=== PATIENT | male | born 1970 | race Caucasian/White ===

== ENCOUNTER 2017-01-10 10:25 | Emergency (ER) | payer BC ==
[~2017-01-10] VITALS: Ht 167.6 cm; Wt 59.1 kg
[~2017-01-10 10:25] MED LIST: CELEXA10 MG PO; NO HOME MEDICATIONS; PEPCID 20MG TAB20 MG PO; PERCOCET 325 MG1 TA2 PO; PRILOSEC 20MG20 MG PO
[2017-01-10 10:28] VITALS: TEMP 97.5
[2017-01-10] MEDS ORDERED: CLARITIN 1010 MG/TAB PO (10:35)
[2017-01-10] MEDS ORDERED: CELEXA40 MG PO (10:35)
[2017-01-10 10:53] LABS: BASO # 0.1 (0.0-0.2); EOS # 0.2 (0.0-0.7); EOS % 3.6 % (0-4.0); GRAN # 2.2 (1.4-6.5); GRAN % 42.8 % (42.2-75.2); HEMATOCRIT 40.4 % (42.0-52.0); HEMOGLOBIN 13.9 g/dl (13.5-18.0); LYMPH # 2.2 (1.2-3.4); LYMPH % 44.6 % (20.0-51.0); MEAN CELL VOLUME 87 fl (80.0-100.0); MEAN CORPUSCULAR HEMOGLOBIN 30 pg (27.0-31.0); MEAN CORPUSCULAR HGB CONC 34 g/dl (33.0-37.0); MEAN PLATELET VOLUME 10.9 fl (7.4-10.4); MONO # 0.4 (0.1-0.6); MONO % 7.6 % (1.7-9.3); PLATELET COUNT 194 K/mm3 (130-400); RED BLOOD COUNT 4.64 M/mm3 (4.20-5.60); REDCELL DISTRIBUTION WIDTH-CV 13.1 % (11.5-14.5)
[2017-01-10 11:10] LABS: ALANINE AMINOTRANSFERASE 75 U/L (21-72); ALBUMIN 4.5 gm/dL (3.5-5.0); ALKALINE PHOSPHATASE 83 U/L (50-136); ANION GAP 12 mmol/L (7-16); BILIRUBIN,TOTAL 0.9 mg/dL (0.0-1.0); BLOOD UREA NITROGEN 16 mg/dL (9-20); CALCIUM 9.4 mg/dL (8.4-10.2); CARBON DIOXIDE 23 mmol/L (22-30); CHLORIDE 104 mmol/L (98-107); CREATININE, serum 1.06 mg/dL (0.66-1.25); GLUCOSE 92 mg/dL (74-106); POTASSIUM 4.1 mmol/L (3.4-5.0); SODIUM 140 mmol/L (137-145); TOTAL PROTEIN 7.6 gm/dL (6.4-8.2)
[2017-01-10 11:27] LABS: TROPONIN-I < 0.012 ng/mL (0.000-0.034)
[2017-01-10 12:19] VITALS: BP 114/76; PULSE 76
== END 2017-01-10 12:19 | disposition home or self-care (01) ==
LOC: COL.ER 10:25
PROVIDERS: Emergency Medicine
DX: R56.9 Unspecified convulsions (principal); F32.9 Major depressive disorder, single episode, unspecified; F41.9 Anxiety disorder, unspecified
CPT/HCPCS: J2060

== ENCOUNTER 2019-12-01 15:25 | Emergency (ER) | payer BC ==
[~2019-12-01] VITALS: Ht 167.6 cm; Wt 54.5 kg
[~2019-12-01 15:25] MED LIST changes: +CELEXA40 MG PO; +CLARITIN 1010 MG/TAB PO
[2019-12-01 15:45] VITALS: TEMP 99.3
[2019-12-01 16:05] LABS: COLLECTION METHOD CLEAN CATCH
[2019-12-01 16:08] LABS: BASO # 0.1 (0.0-0.2); BASO % 0.6 % (0.0-2.0); EOS % 0.3 % (0-4.0); GRAN # 8.9 (1.4-6.5); GRAN % 83.6 % (42.2-75.2); HEMOGLOBIN 13.5 g/dl (13.5-18.0); LYMPH # 1.1 (1.2-3.4); LYMPH % 10.1 % (20.0-51.0); MEAN CELL VOLUME 88 fl (80.0-100.0); MEAN CORPUSCULAR HEMOGLOBIN 30 pg (27.0-31.0); MEAN CORPUSCULAR HGB CONC 34 g/dl (33.0-37.0); MEAN PLATELET VOLUME 9.7 fl (7.4-10.4); MONO # 0.5 (0.1-0.6); PLATELET COUNT 186 K/mm3 (130-400); RED BLOOD COUNT 4.53 M/mm3 (4.20-5.60); REDCELL DISTRIBUTION WIDTH-CV 13.2 % (11.5-14.5)
[2019-12-01 16:20] LABS: ALBUMIN 4.6 gm/dL (3.5-5.0); ALKALINE PHOSPHATASE 85 U/L (50-136); ANION GAP 11 mmol/L (7-16); AST,SGOT 28 U/L (15-37); BILIRUBIN,TOTAL 0.7 mg/dL (0.0-1.0); BLOOD UREA NITROGEN 18 mg/dL (9-20); CALCIUM 9.3 mg/dL (8.4-10.2); CARBON DIOXIDE 23 mmol/L (22-30); CHLORIDE 107 mmol/L (98-107); CREATININE, serum 1.17 (0.66-1.25); GLUCOSE 121 mg/dL (74-106); LIPASE 202 U/L (23-300); POTASSIUM 3.4 mmol/L (3.4-5.0); SODIUM 141 mmol/L (137-145); TOTAL PROTEIN 7.9 gm/dL (6.4-8.2)
[2019-12-01 16:21] LABS: C-REACTIVE PROTEIN < 0.5 mg/dL (0.0-0.9); MUCOUS Present /lpf; PH 6 (5-8); SQUAMOUS EPITHELIAL None Seen /hpf; URINE APPEARANCE Cloudy; URINE BACTERIA None Seen /hpf; URINE BILIRUBIN Negative (NEGATIVE); URINE BLOOD 3+ (NEGATIVE); URINE COLOR Yellow; URINE GLUCOSE Negative (NEGATIVE); URINE KETONE Trace (NEGATIVE); URINE LEUKOCYTE ESTERASE Negative (NEGATIVE); URINE NITRATE Negative (NEGATIVE); URINE PROTEIN(semi-quant) 1+ (NEGATIVE); URINE RBC >50 /hpf; URINE UROBILINOGEN Negative (NEGATIVE)
[2019-12-01 16:25] LABS: ALANINE AMINOTRANSFERASE 34 U/L (4-49)
[2019-12-01] MEDS ORDERED: NORCO 325 MG-51 TAB PO (18:29)
[2019-12-01 18:48] VITALS: BP 102/72; PULSE 93
== END 2019-12-01 18:50 | disposition home or self-care (01) ==
LOC: COL.ER 15:25
PROVIDERS: Nurse Practitioner Primary Care
DX: N20.1 Calculus of ureter (principal); F32.9 Major depressive disorder, single episode, unspecified; F41.9 Anxiety disorder, unspecified
CPT/HCPCS: J1170; J1885; J2405; J3010; J7030; Q9967

== ENCOUNTER 2020-07-31 21:35 | Emergency (ER) | payer BC ==
[~2020-07-31] VITALS: Ht 170.2 cm; Wt 66.4 kg
[~2020-07-31 21:35] MED LIST changes: +NORCO 325 MG-51 TAB PO
[2020-07-31 21:58] VITALS: TEMP 97.4
[2020-07-31 22:10] LABS: BASO # 0.1 (0.0-0.2); BASO % 0.9 % (0.0-2.0); EOS # 0.1 (0.0-0.7); EOS % 1.4 % (0-4.0); GRAN # 5.7 (1.4-6.5); HEMATOCRIT 38.8 % (42.0-52.0); HEMOGLOBIN 13.2 g/dl (13.5-18.0); LYMPH # 1.6 (1.2-3.4); LYMPH % 20.1 % (20.0-51.0); MEAN CELL VOLUME 86 fl (80.0-100.0); MEAN CORPUSCULAR HEMOGLOBIN 29 pg (27.0-31.0); MEAN CORPUSCULAR HGB CONC 34 g/dl (33.0-37.0); MEAN PLATELET VOLUME 9.7 fl (7.4-10.4); MONO # 0.5 (0.1-0.6); MONO % 6.3 % (1.7-9.3); PLATELET COUNT 213 K/mm3 (130-400)
[2020-07-31 22:20] LABS: ALBUMIN 4.5 gm/dL (3.5-5.0); BILIRUBIN,TOTAL 0.5 mg/dL (0.0-1.0); CREATININE, serum 1.26 (0.66-1.25); POTASSIUM 3.4 mmol/L (3.4-5.0); TOTAL PROTEIN 7.6 gm/dL (6.4-8.2)
[2020-07-31 22:47] LABS: COLLECTION METHOD CLEAN CATCH
[2020-07-31 22:52] LABS: MUCOUS Present /lpf; PH 6 (5-8); SQUAMOUS EPITHELIAL None Seen /hpf; URINE APPEARANCE Hazy; URINE BACTERIA None Seen /hpf; URINE BILIRUBIN Negative (NEGATIVE); URINE BLOOD Negative (NEGATIVE); URINE COLOR Yellow; URINE GLUCOSE Negative (NEGATIVE); URINE KETONE Trace (NEGATIVE); URINE LEUKOCYTE ESTERASE Negative (NEGATIVE); URINE NITRATE Negative (NEGATIVE); URINE PROTEIN(semi-quant) 2+ (NEGATIVE); URINE RBC 0-2 /hpf; URINE UROBILINOGEN Negative (NEGATIVE); URINE WBC 0-2 /hpf
[2020-07-31] MEDS ORDERED: ZOFRAN 4MG T4 MG/TAB PO (23:34)
[2020-07-31 23:56] VITALS: BP 121/83; PULSE 87
== END 2020-07-31 23:56 | disposition home or self-care (01) ==
LOC: COL.ER 21:35
PROVIDERS: Nurse Practitioner Primary Care
DX: N20.0 Calculus of kidney (principal); E86.0 Dehydration; F32.9 Major depressive disorder, single episode, unspecified; F41.9 Anxiety disorder, unspecified
CPT/HCPCS: J1885; J2405

== ENCOUNTER 2022-08-25 06:34 | Day surgery (SDC) | payer BC ==
[~2022-08-25] VITALS: Ht 167.6 cm; Wt 68.1 kg
[2022-08-25] VITALS (8 sets, daily range): BP systolic 99–122; BP diastolic 71–85; PULSE 60–80; TEMP 97.1–97.6
[~2022-08-25 06:34] MED LIST changes: +ZOFRAN 4MG T4 MG/TAB PO
--- NOTE | 2022-08-25 10:35 | NUR ---
0878 RECEIVED POST PROCEDURE REPORT FROM NATY CARDONA. PT ALERT AND ABLE TO AMBULATE FROM CART TO RECLINER. GAIT UNSTEADY. PT DROWSEY IN CHAIR. ANSWERING QUESTIONS. 0850 MUFFIN AND JUICE PROVIDED TO PT. PT HAD COUGHING AFTER SIPS OF JUICE. HELD FOR PT TO BECOME MORE ALERT. DR. FLETCHER IN TO UPDATE PT AND FAMILY ON PROCEDURE RESULTS AND PLAN FOR FOLLOW UP CARE. PT MONITORED FOR ALERTNESS AND ENCOURAGED TO TAKE FOOD AND DRINK AT A PACE HE IS COMFORTABLE WITH. PT TOLERATED MUFFINS AND JUICE. 1023 DISCHARGE INSTRUCTIONS AND PT EDUCATION MATERIAL REVIEWED W/ PT AND FAMILY. QUESTIONS INVITED AND ANSWERED. PT VERBALIZED UNDERSTANDING. 1035 PT TO LOBBY VIA WHEEL CHAIR FOR RIDE HOME WITH FAMILY VIA POV.
== END 2022-08-25 10:35 | disposition home or self-care (01) ==
LOC: SDCO 06:34
DX: Z12.11 Encounter for screening for malignant neoplasm of colon (principal); Z80.0 Family history of malignant neoplasm of digestive organs
CPT/HCPCS: J2704; J3010; J7120